=== PATIENT | male | born 1950 | race Caucasian/White ===

== ENCOUNTER 2018-06-12 06:31 | Inpatient (IN) ==
[2018-06-12] MEDS ORDERED: LIDOCAINE 1% 20 ML VIAL SQ ONE ×2 (06:32)
[2018-06-12] MEDS ORDERED: HYDROmorphone 2 MG/ML VIAL IV ONE (06:51)
--- NOTE | 2018-06-12 06:56 | Emergency Department Note ---
SOB HPI - General Chief Complaint: Shortness of Breath/Dyspnea Stated Complaint: Shortness of Breath Time Seen by Provider: 06/12/18 06:39 Source: patient Mode of arrival: ambulatory Limitations: no limitations - History of Present Illness 68-year-old patient comes in for repeat episode of shortness of breath and chest pain on the right. Last week he had a spontaneous pneumothorax and had a chest tube placed by interventional radiology. Patient returns 1 week after getting tube out from a spontaneous pneumothorax; feels like he did before with severe shortness of breath that recurred this morning. No other new symptoms - Related Data Home Medications Medication Instructions Recorded Confirmed aspirin 81 mg chewable tablet 81 mg PO QDAY tab 04/24/15 06/12/18 multivitamin tablet 1 tab PO QDAY tab 04/24/15 06/12/18 diphenhydramine 25 mg tablet 25 mg PO QHS PRN tab 01/17/17 06/12/18 folic acid 800 mcg tablet 800 mcg PO QDAY 01/17/17 06/12/18 Previous Rx's Medication Instructions Recorded linagliptin 5 mg tablet 5 mg PO QDAY #90 tab 12/08/16 FreeStyle [place] Lite kit See Dose Instructions .ROUTE 12/24/16 .MEDSUPPLY #100 each NS tadalafil 20 mg tablet 20 mg PO ONCE #30 tab 01/17/17 blood sugar diagnostic strips See Dose Instructions .ROUTE 07/22/17 .MEDSUPPLY #100 each blood-glucose meter See Dose Instructions .ROUTE 07/22/17 .MEDSUPPLY #1 each atorvastatin 40 mg tablet 40 mg PO QDAY #90 tab 09/01/17 sildenafil 100 mg tablet 100 mg PO ONCE #30 tab 01/18/18 metoprolol tartrate 25 mg tablet 25 mg PO BID #90 tab 03/09/18 metformin 1,000 mg tablet 1,000 mg PO BID #60 tab 04/10/18 HYDROcodone/APAP 5/325MG [[employer] 1 tab PO Q4HP PRN #15 tab 06/12/18 5-325Mg] Allergies Allergy/AdvReac Type Severity Reaction Status Date / Time No Known Drug Allergies Allergy Verified 06/05/18 10:12 Review of Systems All systems ED: reviewed and negative except as stated. Past Medical History - Past Medical History Attestation: Yes: The following information was validated with the patient. Medical history: Reports: coronary artery disease, DM, myocardial infarction Surgical history ED: Reports: coronary bypass (CABG) - Social History smoking status: Former smoker Alcohol use: Reports: None Drug use: Reports: none Physical Exam Ill-appearing male resting. Normocephalic atraumatic. Conjunctive clear sclerae nonicteric. Nasal cannula oxygen placed. Heart is regular rate and rhythm. Lungs show decreased lung sounds on the right lower daniel but upper daniel are clear as are the left lung daniel. No wheezing rales rhonchi. Abdomen soft nontender nondistended. +2 radial pulse. No pedal edema. Alert oriented able answer questions appropriately Limitations: no limitations Course Vital Signs Temperature 97.7 F 06/12/18 06:31 Pulse Rate 103 H 06/12/18 06:31 Respiratory Rate 24 H 06/12/18 06:31 Blood Pressure 177/92 06/12/18 06:31 Pulse Oximetry (%) 97 06/12/18 06:31 Temperature 97.7 F 06/12/18 06:31 Pulse Rate 90 06/12/18 08:47 Respiratory Rate 24 H 06/12/18 06:31 Blood Pressure 129/77 06/12/18 08:47 Pulse Oximetry (%) 99 06/12/18 08:47 Shortness of Breath/Dyspnea - Radiology Data Radiology results reviewed: Yes I reviewed the patient's radiology results. X-ray shows right-sided lower lung collapse/pneumothorax. Upper lobe does appear to be inflated. I do not see evidence of tension at this time Disposition Pt seen by SOLID SURFACE FABRICATOR/PA only: No Clinical Impression: Pneumothorax Qualifiers: Pneumothorax type: spontaneous, primary Qualified Code(s): J93.11 - Primary spontaneous pneumothorax Summary: Patient is seen and found to have a return of spontaneous pneumothorax. Pigtail catheter again placed by Dr. Rodriguez with Heimlich valve. After discussion with Dr. Rodriguez call is placed to thoracic surgery for possible pleurodesis. Patient is checked out to Dr. wu at shift change for final discharge home. He will review x-ray and sent home if appropriate. Anticipate follow-up as an outpatient with thoracic surgery-I gave transfer center my cell phone number so that I could discuss with thoracic surgery and their office could coordinate for that. See patient instructions. Small amount of pain medicine written for Disposition: Home, Self-Care Condition: Fair Additional Instructions: The surgery office will call you for an appointment as an outpatient in [place]- you will leave the tube in until you see them. Rx for small amount of pain medicine written. Please be careful with this medicine and do not drive or operate machinery. This medicine can cause sedation or impair your judgment Return to the ER for any worsening symptoms Prescriptions: HYDROcodone/APAP 5/325MG [[employer] 5-325Mg] 1 tab PO Q4HP PRN #15 tab PRN Reason: Pain Referrals: Peter Contreras PA-C [Primary Care Provider] -
--- NOTE | 2018-06-12 10:16 | XRay Report ---
CLINICAL INFORMATION: History pneumothorax. Shortness of breath COMPARISON: 06/05/2018 FINDINGS: COPD changes again noted. Heart size, mediastinum and pulmonary vessels are normal. There is a large recurrent (greater than 50%) right pneumothorax. Scattered upper pleural adhesions appear to prevent complete right upper lobe collapse. No infiltrates IMPRESSION: Large (greater than 50%) recurrent right pneumothorax with diaphragm depression and leftward cardiomediastinal shift containing a tension component. Small bore chest tube will be placed under fluoroscopy Interpreted and Authenticated by: Jon Rodriguez 06/12/18
--- NOTE | 2018-06-12 10:20 | XRay Report ---
CLINICAL INFORMATION: Recurrent right CT percent pneumothorax. History of COPD TECHNIQUE: The procedure and risks including possibility of bleeding, infection and worsening pneumothorax were explained to the patient. He understood and wished to proceed. With the patient supine on fluoroscopy table, the skin overlying the right anterior second intercostal space at mid clavicular line was fluoroscopically marked, prepped and locally anesthetized to the level of the parietal pleura with 1% lidocaine using a 25-gauge spinal needle. A 10 [place] small bore pigtail chest tube mounted on a trocar was placed under fluoroscopy into the pleural space. The tube was hooked to suction and over 1 L of air was removed. The lung was reinflated and a standard Heimlich valve and secured with 0 silk suture and tape. The fluoroscopic image following the procedure showed near complete evacuation of the pneumothorax and reexpansion lesion of the right lung. IMPRESSION: Successful placement of smallbore pigtail chest tube in the right pleural space evacuating over 1 L of pleural air. The right lung is reexpanded on the final fluoroscopy fluoroscopic image. Patient symptoms were relieved. Interpreted and Authenticated by: Jno Rodriguez 06/12/18
--- NOTE | 2018-06-12 10:25 | XRay Report ---
CLINICAL INFORMATION: ITS.REASON: post tube insertion COMPARISON: None. FINDINGS: Right small bore chest tube extends stable satisfactory position of the lateral right upper thorax There is still a 40% residual right pneumothorax in the lateral right lower lobe region. The right upper lobe component has resolved. COPD changes again noted. No infiltrates. Cardiomediastinal silhouette and pulmonary vessels normal. IMPRESSION: 40% residual right pneumothorax in the right lower lobe region. This could indicate adhesions in the right upper lobe preventing communication. The patient will return to the radiology department for additional suction to prove communication of the entire pleural space Interpreted and Authenticated by: Jon Rodriguez 06/12/18
--- NOTE | 2018-06-12 10:29 | XRay Report ---
CLINICAL INFORMATION: Postop placement of right smallbore chest tube COMPARISON: None. FINDINGS: Heart size, mediastinum and pulmonary vessels are normal. COPD changes again noted. Following suction, the right lung is almost totally reexpanded with a 5% residual pneumothorax in the lateral right lower lobe. No infiltrates. IMPRESSION: Following suction, near complete reexpansion of the right lower lobe with 5% residual pneumothorax at the lateral base. Since this is a recurrent pneumothorax, the patient will be referred to thoracic surgery for a consultation for a pleurodesis procedure. Suggest this tube remain in the pleural space in placein case it can be utilized for therapeutic access Interpreted and Authenticated by: Jon Rodriguez 06/12/18
--- NOTE | 2018-06-12 10:32 | XRay Report ---
CLINICAL INFORMATION: ITS.REASON: check for inflation post right chest tube COMPARISON: None. FINDINGS: Right chest tube in stable position. There is a 50% residual right pneumothorax. COPD changes noted. Cardiomediastinal and pulmonary vessels are normal. IMPRESSION: 50% residual right pneumothorax. Note, the final and latest film does show reexpansion of the right lung and evacuation of the right pneumothorax following suction Interpreted and Authenticated by: Jon Rodriguez 06/12/18
--- NOTE | 2018-06-12 12:44 | XRay Report ---
CLINICAL INFORMATION: Follow small bore chest tube placement for right pneumothorax COMPARISON: None. FINDINGS: There is a 50% recurrent right pneumothorax appreciated. Right chest tube remains in stable, satisfactory position within the lateral pleural space the right upper lobe. Minor subcutaneous emphysema is seen in the upper lateral right chest wall. COPD changes again noted. Cardiomediastinal silhouette and pulmonary vessels are normal IMPRESSION: 50% recurrent pneumothorax despite right chest tube in satisfactory position in the lateral right upper lobe pleural space. Presumably, there is either a second or a larger primary persistent air leak.. A second small bore chest tube will be placed in the pleural space of the lateral right lower lobe. Interpreted and Authenticated by: Jon Rodriguez 06/12/18
--- NOTE | 2018-06-12 13:39 | XRay Report ---
CLINICAL INFORMATION: Persistent right pneumothorax despite proper placement of an initial chest tube in the right upper lobe pleural space. Suspect either a single large or, perhaps, multiple air leaks from a ruptured bullae. TECHNIQUE: The procedure and risks including possibility of bleeding, infection and worsening pneumothorax were explained to the patient. He understood and wished to proceed. With the patient supine on fluoroscopy table, the skin overlying the right anterior sixth intercostal space at mid clavicular line (over the lateral lower lobe region) was fluoroscopically marked, prepped and locally anesthetized to the level the parietal pleura with 1% lidocaine using a 25 gauge spinal needle. A 10 [place] small bore pigtail chest tube mounted on a trocar was placed using fluoroscopy into the lateral pleural space the right lower lobe. Over 1 L of air was removed with complete evacuation the right normal thorax and reexpansion of the right lung. The tube was placed to a standard Heimlich bowel [with and secured with 0 silk suture and tape. The patient was observed after the tube with the Heimlich valve but without the the aid of suction., Unfortunately the lung partially deflated IMPRESSION: Successful fluoroscopic placement of a second small bore chest tube in the lateral pleural space of the right lower lobe. Over 1 L of air was evacuated with suction with pneumothorax evacuation and complete reexpansion of the right lung. The tube was then removed from suction and placed to a standard Heimlich valve. Unfortunately, this resulted in partial right lung deflation with reaccumulation of the pneumothorax. This would indicate the presence of a larger and/or multiple air leaks likely from ruptured bullae in this patient with COPD. . PLAN: Both tubes will be maintained with suction to to allow prolonged right lung reexpansion for 2 to 3 hours. The tubes will then be placed back to Heimlich valve determine whether the right lung and maintain reexpansion. Interpreted and Authenticated by: Jon Rodriguez 06/12/18
--- NOTE | 2018-06-12 13:52 | Emergency Department Note ---
SOB HPI - General Chief Complaint: Shortness of Breath/Dyspnea Stated Complaint: Shortness of Breath Time Seen by Provider: 06/12/18 06:39 Source: patient Mode of arrival: ambulatory Limitations: no limitations - Related Data Home Medications Medication Instructions Recorded Confirmed aspirin 81 mg chewable tablet 81 mg PO QDAY tab 04/24/15 06/12/18 multivitamin tablet 1 tab PO QDAY tab 04/24/15 06/12/18 diphenhydramine 25 mg tablet 25 mg PO QHS PRN tab 01/17/17 06/12/18 folic acid 800 mcg tablet 800 mcg PO QDAY 01/17/17 06/12/18 Previous Rx's Medication Instructions Recorded linagliptin 5 mg tablet 5 mg PO QDAY #90 tab 12/08/16 FreeStyle [place] Lite kit See Dose Instructions .ROUTE 12/24/16 .MEDSUPPLY #100 each NS tadalafil 20 mg tablet 20 mg PO ONCE #30 tab 01/17/17 blood sugar diagnostic strips See Dose Instructions .ROUTE 07/22/17 .MEDSUPPLY #100 each blood-glucose meter See Dose Instructions .ROUTE 07/22/17 .MEDSUPPLY #1 each atorvastatin 40 mg tablet 40 mg PO QDAY #90 tab 09/01/17 sildenafil 100 mg tablet 100 mg PO ONCE #30 tab 01/18/18 metoprolol tartrate 25 mg tablet 25 mg PO BID #90 tab 03/09/18 metformin 1,000 mg tablet 1,000 mg PO BID #60 tab 04/10/18 HYDROcodone/APAP 5/325MG [[place] 1 tab PO Q4HP PRN #15 tab 06/12/18 5-325Mg] Allergies Allergy/AdvReac Type Severity Reaction Status Date / Time No Known Drug Allergies Allergy Verified 06/05/18 10:12 Past Medical History - Past Medical History Medical history: Reports: coronary artery disease, DM, myocardial infarction Surgical history ED: Reports: coronary bypass (CABG) - Social History smoking status: Former smoker Alcohol use: Reports: None Drug use: Reports: none Physical Exam Limitations: no limitations Course Vital Signs Temperature 97.7 F 06/12/18 06:31 Pulse Rate 103 H 06/12/18 06:31 Respiratory Rate 24 H 06/12/18 06:31 Blood Pressure 177/92 06/12/18 06:31 Pulse Oximetry (%) 97 06/12/18 06:31 Temperature 97.7 F 06/12/18 06:31 Pulse Rate 80 06/12/18 13:32 Respiratory Rate 15 06/12/18 13:32 Blood Pressure 131/73 06/12/18 13:32 Pulse Oximetry (%) 100 06/12/18 13:32 Shortness of Breath/Dyspnea - [facility] Narrative Medical decision making narrative: This patient has now had 2 Heimlich valve chest tubes placed and is on suction and having difficulty reexpanding. Discussed the case with the thoracic surgeon Dr. Nicole in [place] he accepts the patient in transfer. He may have to have some sort of pleural abrasion done. - Radiology Data Radiology results reviewed: Yes I reviewed the patient's radiology results. Disposition Pt seen by SHIP'S MASTER/PA only: No Clinical Impression: Pneumothorax Qualifiers: Pneumothorax type: spontaneous, primary Qualified Code(s): J93.11 - Primary spontaneous pneumothorax Disposition: [facility] Condition: Good Additional Instructions: The surgery office will call you for an appointment as an outpatient in [place]- you will leave the tube in until you see them. Rx for small amount of pain medicine written. Please be careful with this medicine and do not drive or operate machinery. This medicine can cause sedation or impair your judgment Return to the ER for any worsening symptoms Prescriptions: HYDROcodone/APAP 5/325MG [[place] 5-325Mg] 1 tab PO Q4HP PRN #15 tab PRN Reason: Pain Referrals: Peter Contreras PA-C [Primary Care Provider] -
[2018-06-12 15:40] LABS: Basophils # (Auto) 0 K/mcL (0.0-0.3); Basophils % (Auto) 0.3 % (0.0-2.0); Eosinophils # (Auto) 0.2 K/mcL (0.0-0.7); Lymphocytes # (Auto) 1.7 K/mcL (1.5-4.8); Lymphocytes % (Auto) 17.6 % (15.5-49.0); Mean Cell Volume 87.5 fL (80.0-100.0); Mean Corpuscular Hemoglobin 28.9 pg (26.0-34.0); Monocytes # (Auto) 0.9 K/mcL (0.1-0.9); Monocytes % (Auto) 9.1 % (1.0-12.0); Platelet Count 231 K/mcL (140-440); RBC 5.04 M/mcL (4.50-5.90); Red Cell Distribution Width 15.4 % (11.5-14.5)
[2018-06-12 16:04] LABS: ALT/SGPT 17 U/l (0-40); Albumin 3.9 gm/dL (3.2-5.2); Albumin/Globulin Ratio 1.2 (1.0-2.3); Alkaline Phosphatase 71 U/L (39-117); Blood Urea Nitrogen 11 mg/dl (8-23)
[2018-06-12] MEDS ORDERED: HYDROmorphone 2 MG/ML VIAL IV PRN (17:09)
[2018-06-12] MEDS ORDERED: ZOLPIDEM 5 MG TABLET PO PRN (17:09)
[2018-06-12] MEDS ORDERED: HYDROcodone/APAP 5/325MG TABLET PO PRN (17:09)
[2018-06-12] MEDS ORDERED: ONDANSETRON 4 MG/2 ML VIAL IV PRN (17:09)
[2018-06-12] MEDS ORDERED: 0.9 % SODIUM CHLORIDE 1,000 ML IV SCH (17:15)
--- NOTE | 2018-06-12 17:23 | General Surg History&Physical ---
History of Present Illness Patient information: Note initiated : 06/12/18 at 5:19 pm Service Date, if different from initiated Date: [] Patient: Dominic Grey a 68 y/o M admitted on for Shortness of breath. Chief Complaint: [shortness of breath] HPI: Mr. Grey is a 68 year old M who is admitted for treatment of tension pneumothorax. The patient presented on 03 June with shortness of breath. Chest x-ray showed a very large tension pneumothorax which was treated with a Pleurx catheter and Heimlich valve by Radiology.. The follow-up x-ray was reexpanded, so he was discharged home to have follow-up in 2 days with Heimlich valve. Follow-up x-ray on 05 June showed the lung to be continually expanded so the tube was removed. Patient did well for a few days but had developed shortness of breath on 11 June. Another catheter was placed but he had continued pneumothorax. A another catheter was placed in the lower aspect of this thoracic cavity.; However, the patient had a persistent leak. Thoracic surgery at [place] was contacted and they agreed to accept the patient for possible VATS procedure. They however, cannot accept the patient until tomorrow. The patient is admitted and will be placed on continuous suction and waterseal until tomorrow. He can be transferred tomorrow after a chest x-ray is done. Review of Systems All systems PM: reviewed and no additional remarkable complaints except as stated Past History Past medical history: Diabetes mellitus. Coronary artery disease Past surgical history: Coronary artery bypass graft 2014 Past social history: Former smoker. Denies alcohol use. Denies drug use Medications and Allergies Home Medications Medication Instructions Recorded Confirmed Type aspirin 81 mg chewable tablet 81 mg PO QDAY tab 04/24/15 06/12/18 History multivitamin tablet 1 tab PO QDAY tab 04/24/15 06/12/18 History linagliptin 5 mg tablet 5 mg PO QDAY #90 tab 12/08/16 06/12/18 Rx FreeStyle [place] Lite kit See Dose Instructions .ROUTE 12/24/16 06/05/18 Rx .MEDSUPPLY #100 each NS diphenhydramine 25 mg tablet 25 mg PO QHS PRN tab 01/17/17 06/12/18 History folic acid 800 mcg tablet 800 mcg PO QDAY 01/17/17 06/12/18 History tadalafil 20 mg tablet 20 mg PO ONCE #30 tab 01/17/17 06/12/18 Rx blood sugar diagnostic strips See Dose Instructions .ROUTE 07/22/17 06/05/18 Rx .MEDSUPPLY #100 each blood-glucose meter See Dose Instructions .ROUTE 07/22/17 06/05/18 Rx .MEDSUPPLY #1 each atorvastatin 40 mg tablet 40 mg PO QDAY #90 tab 09/01/17 06/12/18 Rx sildenafil 100 mg tablet 100 mg PO ONCE #30 tab 01/18/18 06/12/18 Rx metoprolol tartrate 25 mg tablet 25 mg PO BID #90 tab 03/09/18 06/12/18 Rx metformin 1,000 mg tablet 1,000 mg PO BID #60 tab 04/10/18 06/12/18 Rx HYDROcodone/APAP 5/325MG [[employer] 1 tab PO Q4HP PRN #15 tab 06/12/18 Rx 5-325Mg] Allergies Allergy/AdvReac Type Severity Reaction Status Date / Time No Known Drug Allergies Allergy Verified 06/05/18 10:12 Exam Temp Pulse Resp BP Pulse Ox 97.7 F 90 24 H 142/83 100 06/12/18 06:31 06/12/18 17:01 06/12/18 16:02 06/12/18 17:01 06/12/18 17:01 - General physical appearance well developed, well nourished, no distress - Eyes PERRL, normal ocular movement - ENT normal pinna, normal nares, normal mucosa, no hearing loss, no congestion - Head Head exam IM: Present: atraumatic, normocephalic - Neck no masses, no bruits, trachea midline, no lymphadectomy, no venous distension - Cardiovascular Cardiovascular exam IM: Present: normal rate and rhythm - Respiratory other (2 chest catheters in the right hemithorax; persistent air leak noted in both catheters; decreased breath sounds right chest) - Abdomen Abdomen: Present: soft, non tender, bowel sounds Hernia: Present: none - Genitourinary Present: normal penis with no external lesions - Integumentary Present: no rash, no growths, no abnormal pigmentation - Neurologic Present: normal coordination, normal sensation - Musculoskeletal Present: normal gait, normal posture - Psychiatric Present: oriented to time, oriented to person, oriented to place, speech is normal, memory intact Assessment and Plan (1) Pneumothorax, right Status: Acute (2) Diabetes mellitus Status: Acute Qualifiers: Diabetes mellitus type: type 2 Diabetes mellitus termite inspector insulin use: with termite inspector use Diabetes mellitus complication status: without complication Qualified Code(s): E11.9 - Type 2 diabetes mellitus without complications; Z79.4 - computer terminal operator (current) use of insulin (3) Coronary artery disease Status: Acute Qualifiers: Coronary Disease-Associated Artery/Lesion type: jena artery [place] vs. transplanted heart: jena heart
[2018-06-12] MEDS: DOCUSATE SODIUM 100 MG CAPSULE PO SCH (21:32)
[2018-06-12] MEDS: METOPROLOL TARTRATE 25 MG TABLET PO SCH (21:32)
[2018-06-12] MEDS: 0.9 % SODIUM CHLORIDE 10 ML SYRINGE IV SCH (21:55)
[2018-06-12] MEDS: metFORMIN 500 MG TABLET PO SCH (21:55)
--- NOTE | 2018-06-13 06:52 | XRay Report ---
CLINICAL INFORMATION: Follow right pneumothorax COMPARISON: 06/12/2018 FINDINGS: Two small bore chest tubes in the lateral pleural space of the right upper and lower lobes, respectively remain in stable, satisfactory position. The right lung is now almost totally reexpanded with a tiny sliver-like pneumothorax, less than 5%, laterally. Lungs are clear. Heart size, mediastinum and pulmonary vessels are normal. Trace subcutaneous emphysema noted in the deep right lateral chest wall IMPRESSION: Tiny residual right pneumothorax in the lateral right midlung. Two right chest tubes in stable position. Interpreted and Authenticated by: Jon Rodriguez 06/13/18
[2018-06-13] MEDS: 0.9 % SODIUM CHLORIDE 10 ML SYRINGE IV SCH (07:04)
[2018-06-13] MEDS: metFORMIN 500 MG TABLET PO SCH (07:10)
[2018-06-13] MEDS: DOCUSATE SODIUM 100 MG CAPSULE PO SCH (07:10)
[2018-06-13] MEDS: METOPROLOL TARTRATE 25 MG TABLET PO SCH (07:15)
--- NOTE | 2018-06-28 11:02 | General Surgery Progress Note ---
Subjective Patient reports: pain is less, afebrile Narrative: Note initiated : 06/28/18 at 10:59 am Service Date, if different from initiated Date: [06/13/18] Patient: Dominic Grey 68 y/o M admitted on 06/12/18 for Shortness of Breath/ Pneumothorax. Chief Complaint: [Patient is stable and has no complaints. He denies shortness of breath. He has minimal discomfort from the chest tube insertion sites. Chest x-ray this morning shows near complete reexpansion of his right long. The patient is stable for transfer to [facility] for treatment by thoracic surgery. He still has a significant air leak. Objective Temp Pulse Resp BP Pulse Ox 97.6 F 88 16 123/70 95 06/13/18 08:00 06/13/18 08:00 06/13/18 08:00 06/13/18 08:00 06/13/18 08:00 - General physical appearance well developed, well nourished, no distress - Eyes PERRL, normal ocular movement - ENT normal pinna, normal nares, normal mucosa, no hearing loss, no congestion - Neck no masses, no bruits, trachea midline, no lymphadectomy, no venous distension - Respiratory normal respiratory effort, clear to auscultation - Cardiovascular Cardiovascular exam: Present: normal rate and rhythm, RRR, +S1, +S2. Absent: JVD, tachycardia - Abdomen non tender, bowel sounds (present), surgical scars (none), masses (none) - Integumentary no rash, no growths, no abnormal pigmentation - Neurologic normal coordination, normal sensation - Psychiatric oriented to time, oriented to person, oriented to place, speech is normal, memory intact - Labs 06/12/18 15:10 06/12/18 15:10 Assessment and Plan (1) Pneumothorax, right Status: Acute Assessment and plan: Patient remained stable and this ready for transfer to [facility]. (2) Diabetes mellitus Status: Acute (3) Coronary artery disease Status: Acute - Time Spent With Patient Total time spent is greater than 50% in coordination of care (as documented) at patient's floor/unit and/or counseling patient:
== END 2018-06-13 08:05 | disposition short-term general hospital (02) | DRG 201 ==
LOC: ED 06:31 → MEDSUR 18:09
PROVIDERS: ADMIT Family Medicine Adult Medicine; ATTEND Family Medicine Adult Medicine